=== PATIENT | female | born 1985 | race Caucasian/White ===

== ENCOUNTER 2024-10-25 08:42 | Emergency (ER) | payer MEDICARE, SELFPAY ==
[2024-10-25 08:43] VITALS: PULSE 88; O2SAT 97
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
== END 2024-10-25 08:49 | disposition left against medical advice (07) ==
LOC: SERX 08:56
PROVIDERS: Emergency Provider Emergency Medicine
DX: Z53.21 Procedure and treatment not carried out due to patient leaving prior to being seen by health care provider (principal)

== ENCOUNTER 2024-11-24 20:58 | Emergency (ER) | payer MEDICARE, SELFPAY ==
[2024-11-24 21:07] VITALS: PULSE 90; RESP 19; O2SAT 97
[2024-11-24 21:50] VITALS: BP 142/71; PULSE 83; RESP 18; TEMP 36.8; O2SAT 98
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
[2024-11-24] MEDS: IBUPROFEN TAB 400 MG TABLET 800 MG PO (22:13)
[2024-11-24] MEDS: cephALEXin 250 MG CAPSULE 500 MG PO (22:13)
== END 2024-11-24 22:17 | disposition home or self-care (01) ==
LOC: SERX 22:31
PROVIDERS: Emergency Provider Emergency Medicine
DX: S81.812A Laceration without foreign body, left lower leg, initial encounter (principal); W26.9XXA Contact with unspecified sharp object(s), initial encounter; Z59.00 Homelessness unspecified
CPT/HCPCS: 99282; A9270

== ENCOUNTER 2025-06-19 23:28 | Emergency (ER) | payer MEDICARE, MEDICAID, SELFPAY ==
[2025-06-19 23:29] VITALS: BMI 24.7
[2025-06-19 23:45] VITALS: BP 111/78; PULSE 87; RESP 18; TEMP 36.9; O2SAT 96
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
[2025-06-20 00:41] VITALS: BP 99/73; PULSE 78; RESP 18; TEMP 36.6; O2SAT 96
[2025-06-20 02:10] LABS: Collection Type, Urine Clean Catch
[2025-06-20 02:27] LABS: Bilirubin,Urine Negative (Negative); Blood,Urine 2+ (Negative); Calcium Oxalate Crystals,Urine 1+; Clarity,Urine Turbid (Clear/Hazy); Color,Urine Yellow (Lt Yel-Yel); Glucose, Urine Negative (Negative); Hyaline Casts,Urine < 1 /hpf (0-1); Ketones,Urine Negative (Negative); Leukocyte Esterase,Urine Negative (Negative); Nitrite,Urine Negative (Negative); PH,Urine 6.0 (5.0-7.0); Protein,Urine Trace (Neg - Trace); RBC,Urine 78 /hpf (0-3); Specific Gravity,Urine 1.033 (1.001-1.035); Squamous Epithelial Cell,Urine 14 /hpf (0-5); Urobilinogen,Urine Negative mg/dL (0.0-1.0); WBC,Urine 3 /hpf (0-5)
[2025-06-20 02:28] LABS: HCG Qualitative,Urine Negative
--- NOTE | 2025-06-20 03:02 | PRELIM_ITS ---
CT scan of the cervical spine without intravenous contrast (axial sections with sagittal and coronal reformats). June 20, 2025 at 0149 hours Clinical History: Neck injury. Comparison: No prior study is available for comparison. Findings: There is no evidence of acute fracture or traumatic subluxation. The bones are osteopenic. There is straightening of the cervical lordosis, which may be due to muscle spasm or patient position. The prevertebral soft tissues are unremarkable.There is a hypodense nodule in the left lobe of the thyroid, m easuring 6 mm. Impression: No evidence of acute fracture or traumatic subluxation. Other findings as described above. Suggest clinical correlation and follow up accordingly. Report Electronically Signed By: Tian Leigh 06/20/2025 3:02:00 AM [EST]
--- NOTE | 2025-06-20 03:29 | PRELIM_ITS ---
CT scan of the head without intravenous contrast (axial sections with sagittal and coronal reformats) June 20, 2025 at 0149 hours Clinical History: Injury. Comparison: No prior study is available for comparison. Findings: No evidence of intracranial hemorrhage, mass effect or midline shift. The ventricles and CSF spaces are unremarkable. The calvarium is intact. The mastoid air cells and the visualized paranasal sinuses are clear. There is mild right periorbital soft tissue swelling. Impression: No evidence of intracranial hemorrhage, midline shift or calvarial fracture. Mild right periorbital soft tissue swelling. Report on maxillofacial CT to follow. Report Electronically Signed By: Peg Logan 06/20/2025 3:29:11 AM [EST]
--- NOTE | 2025-06-20 03:34 | PRELIM_ITS ---
CT maxillofacial without intravenous contrast (axial sections with sagittal and coronal reformats). June 20, 2025 at 01:49 hours Clinical History: Injury. Comparison: No prior study is available for comparison Findings: There are age-indeterminate blow-out fractures involving the medial wall of the right orbit. There is associated herniation of the right intraorbital fat through the defect. No obvious right intraorbital hematoma or entrapment of the intraorbital muscle is seen. No evidence of right proptosis, globe injury, or radiodense foreign body is present. There is a small right periorbital and maxillary soft tissue hematoma. The left orbit is unremarkable. The maxillary sinuses and left orbital minor are intact. No fluid levels are seen. The zygomatic arches are unremarkable. There are dental fillings with streak artifact, limiting the evaluation. Impression: 1. Age-indeterminate blowout fracture involving the medial wall of the right orbit as described. 2. Small right periorbital and maxillary soft tissue hematoma. 3. Other findings are as described above. Discussion Details: Results verbally communicated to : Dr. Mcqueen at 03:30 AM 06/20/2025 Report Electronically Signed By: Peg Logan 06/20/2025 3:33:54 AM [EST]
[2025-06-20 03:44] VITALS: BP 101/74; PULSE 79; RESP 18; O2SAT 100
== END 2025-06-20 04:09 | disposition home or self-care (01) ==
PROVIDERS: Nurse Practitioner Family; Emergency Provider Emergency Medicine; PCP Family Medicine
DX: S02.31XA Fracture of orbital floor, right side, initial encounter for closed fracture (principal); S05.11XA Contusion of eyeball and orbital tissues, right eye, initial encounter; H10.31 Unspecified acute conjunctivitis, right eye; S19.9XXA Unspecified injury of neck, initial encounter; Y04.0XXA Assault by unarmed brawl or fight, initial encounter
CPT/HCPCS: 70450; 70486; 71110; 72125; 72202; 80053; 81001; 81025; 85025; 99283